=== PATIENT | male | born 1990 | race Caucasian/White ===

== ENCOUNTER 2016-06-01 18:13 | Inpatient (IN) | payer OTHER ==
--- NOTE | 2016-06-01 18:45 | HP ---
COWS - Scale Resting Pulse: 0= [place] 80 or Below Sweatin=Flushed/Facial Moisture Restless Observation: 3= Extraneous Movement Pupil Size: 2= Moderately Dilated Bone or Joint Aches: 2= Severe Diffuse Aches Runny Nose/ Eye Tearin= Runny Nose/Eyes GI Upset > 30mins: 3= Vomiting/Diarrhea Tremor Observation: 2= Slight Tremor Visible Yawning Observation: 2= >3x During Session Anxiety or Irritability: 2=Irritable/Anxious Goose Flesh Skin: 0=Smooth Skin COWS Score: 20 CIWA Score - CIWA Score Nausea/Vomitin Muscle Tremors: 3 Anxiety: 3 Agitation: 3 Paroxysmal Sweats: 3 Orientation: 0-Oriented Tacttile Disturbances: 2-Mild Itch/Numbness/Burn Auditory Disturbances: 2-Mild Harshness/Frighten Visual Disturbances: 2-Mild Sensitivity Headache: 2-Mild CIWA-Ar Total Score: 23 Admission ROS BHS - HPI Chief Complaint: i need help to stop using drugs heroin,cocaine,klonopin and alcohol Allergies/Adverse Reactions: Allergies Allergy/AdvReac Type Severity Reaction Status Date / Time No Known Allergies Allergy Verified 06/01/16 18:52 History of Present Illness: THIS 26 YEARS OLD MALE WITH HEROIN,KLONOPINE AND COCAINE DEPENDENCE,ALCOHOL DEPENDENCE,WITHDRAWAL SYMPTOM,LAST DETOX ARMS AND ACRES 07/30 ANXIETY NEUROPATHY HISTORY OF C7 ,HERNIATED DISC OF LUMBAR SPINE SEVERAL ADMISSIONS FOR DETOX LONGEST PERIOD OF SOBRIETY 18 MONTHS Exam Limitations: No Limitations - Ebola screening Have you traveled outside of the country in the last 21 days: No Have you had contact with anyone from an Ebola affected area: No Do you have a fever: No - Review of Systems Constitutional: Chills, Loss of Appetite, Malaise, Night Sweats, Changes in sleep, Weakness, Unintentional Wgt. Loss EENT: reports: Tearing, Nose Congestion Cardiac: reports: No Symptoms Reported GI: reports: Diarrhea, Nausea, Vomiting, Abdominal cramping : reports: No Symptoms Reported Musculoskeletal: reports: Back Pain, Joint Pain, Muscle Pain Neuro: reports: Headache, Tremors Endocrine: reports: No Symptoms Reported Hematology: reports: No Symptoms Reported Psychiatric: reports: Anxious, Depressed Patient History - Patient Medical History Hx Anemia: No Hx Asthma: No Hx Chronic Obstructive Pulmonary Disease (COPD): No Hx Cancer: No Hx Cardiac Disorders: No Hx Congestive Heart Failure: No Hx Hypertension: No Hx Hypercholesterolemia: No Hx Pacemaker: No HX Cerebrovascular Accident: No Hx Seizures: No Hx Dementia: No Hx Diabetes: No Hx Gastrointestinal Disorders: No Hx Liver Disease: No Hx Genitourinary Disorders: No Hx Sexually Transmitted Disorders: No Hx Renal Disease (ESRD): No Hx Thyroid Disease: No Hx Human Immunodeficiency Virus (HIV): No (11/30 NEGATIVE LAST) Hx Hepatitis C: No Hx Depression: Yes (ANXIETY) Hx Suicide Attempt: No Hx Bipolar Disorder: No Hx Schizophrenia: No Other Medical History: NO SUICDAL,NO HOMICIDAL - Patient Surgical History Past Surgical History: Yes Other Surgical History: CIRCUMCISION - PPD History Previous Implant?: Yes Documented Results: Negative w/o proof Implanted On Prior [facility] Admission?: No PPD to be Administered?: Yes - Smoking Cessation Smoking history: Current every day smoker Have you smoked in the past 12 months: Yes Aproximately how many cigarettes per day: 10 Cigars Per Day: 0 Hx Chewing Tobacco Use: No Initiated information on smoking cessation: Yes 'Breaking Loose' booklet given: 06/01/16 - Substance & Tx. History Hx Alcohol Use: Yes Hx Substance Use: Yes Substance Use Type: Alcohol, Cocaine, Heroin, Opiates Hx Substance Use Treatment: Yes (ARMS AND ACRES 07/30) - Substances Abused Heroin Route: Injection Frequency: Daily Amount used: 25 BAGS Age of first use: 21 Date of Last Use: 06/01/16 Benzodiazepine (Klonopin) Route: Oral Frequency: Daily Amount used: 3 MGS Age of first use: 24 Date of Last Use: 05/31/16 Cocaine Route: Inhalation Frequency: 1-2 times per week Amount used: 50$ Age of first use: 19 Date of Last Use: 05/31/16 Alcohol Route: Oral Frequency: 1-2 times per week Amount used: 4 OF 40 OZS Age of first use: 15 Date of Last Use: 06/01/16 Family Disease History - Family Disease History Family History: Denies Admission Physical Exam BHS - Vital Signs Vital Signs: Vital Signs Temperature 97.6 F 06/01/16 19:17 Pulse Rate 79 06/01/16 19:17 Respiratory Rate 20 06/01/16 19:17 Blood Pressure 129/79 06/01/16 19:17 O2 Sat by Pulse Oximetry (%) - Physical General Appearance: Yes: Moderate Distress, Tremorous, Irritable, Sweating, Anxious HEENTM: Yes: Nasal Congestion, Rhinorrhea Respiratory: Yes: Lungs Clear Neck: Yes: Within Normal Limits Breast: Yes: Within Normal Limits Cardiology: Yes: Within Normal Limits, Regular Rate, S1, S2 Abdominal: Yes: Within Normal Limits, Normal Bowel Sounds, Non Tender, Flat, Soft Genitourinary: Yes: Within Normal Limits Back: Yes: Within Normal Limits Musculoskeletal: Yes: Back pain, Joint Stiffness, Muscle Pain Extremities: Yes: Tremors Neurological: Yes: Within Normal Limits, legal summer intern II-XII NML intact, Fully Oriented, Alert Integumentary: Yes: Dry Lymphatic: Yes: Within Normal Limits - Diagnostic (1) Opioid dependence with withdrawal Current Visit: Yes Status: Acute (2) Cocaine dependence Current Visit: Yes Status: Acute (3) Uncomplicated sedative, hypnotic or anxiolytic withdrawal Current Visit: Yes Status: Acute (4) Alcohol dependence Current Visit: Yes Status: Acute (5) Anxiety associated with depression Current Visit: Yes Status: Acute (6) Nicotine dependence Current Visit: Yes Status: Acute Cleared for Admission [facility] - Detox or Rehab [facility] Level of Care: Medically Managed Detox Regimen/Protocol: Methadone/Valium [facility] Breath Alcohol Content Breath Alcohol Content: 0.058 Vital Signs - Vital Signs Vital Signs Refused: No Temperature: 97.6 F Temperature Source: Oral Pulse Rate: 79 Respiratory Rate: 20 Blood Pressure: 129/79 BP Location: Left Arm - Height Height: 6 ft - Weight Weight: 179 lb Weight Measurement Method: Standing Scale Body Mass Index (BMI): 24.3 Urine Drug Screen - Test Device Lot Number: [id number] Expiration Date: 11/14/17 - Control Is Test Valid: No - Results Drug Screen Negative: No Urine Drug Screen Results: VIKI-Cocaine, OPI-Opiates, OXY-Oxycodone
[2016-06-01 18:50] VITALS: BMI 24.3
[2016-06-01] MEDS ORDERED: LOPERAMIDE HCL 2 MG CAPSULE PO PRN (19:21)
[2016-06-01] MEDS ORDERED: MENTHOL/PHENOL 1 EACH UD MM PRN (19:21)
[2016-06-01] MEDS ORDERED: ACETAMINOPHEN 325 MG TABLET (FP) PO PRN (19:21)
[2016-06-01] MEDS ORDERED: IBUPROFEN 400 MG TABLET (FP) PO PRN (19:21)
[2016-06-01] MEDS ORDERED: MAGNESIUM CITRATE 300 ML BOTTLE PO PRN (19:21)
[2016-06-01] MEDS ORDERED: MAG HYDROX/AL HYDROX/SIMETH 30 ML UNIT-DOSE CUP PO PRN (19:21)
[2016-06-01] MEDS ORDERED: hydrOXYzine PAMOATE 50 MG CAPSULE (FP) PO PRN (19:21)
[2016-06-01] MEDS ORDERED: guaiFENesin/D-METHORPHAN HB 10 ML UNIT-DOSE CUPS PO PRN (19:21)
[2016-06-01] MEDS ORDERED: METHADONE HCL 10 MG TABLET (FOR DETOX USE ONLY) PO ONE ×2 (19:21→23:00)
[2016-06-01] MEDS ORDERED: diazePAM 5 MG TABLET PO ONE (19:21)
[2016-06-01] MEDS ORDERED: P-EPHED 60MG/TRIPROLIDI 2.5MG TABLET PO PRN (19:21)
[2016-06-01] MEDS ORDERED: MAGNESIUM HYDROX 2400MG/30ML ORAL SUSPENSION 30 ML CUP PO PRN (19:21)
[2016-06-01] MEDS: NICOTINE 21 MG/24 HOURS TOPICAL PATCH TD SCH (20:58)
[2016-06-01] MEDS: NICOTINE POLACRILEX 2 MG GUM BC PRN ×2 (21:02→23:34)
[2016-06-01] MEDS: diphenhydrAMINE HCL 50 MG CAPSULE PO PRN (22:49)
[2016-06-01] MEDS: cloNIDine HCL 0.1 MG TABLET PO SCH (22:49)
[2016-06-01] MEDS: THIAMINE HCL 100 MG TABLET (FP) PO SCH (22:50)
[2016-06-01] MEDS: diazePAM 5 MG TABLET PO SCH (22:50)
[2016-06-02] MEDS ORDERED: diphenhydrAMINE HCL 25 MG CAPSULE (FP) PO ONE (01:06)
[2016-06-02] MEDS: CYCLOBENZAPRINE HCL 10 MG TABLET (FP) PO PRN (01:07)
[2016-06-02] MEDS: diazePAM 5 MG TABLET PO PRN ×3 (01:07→17:32)
[2016-06-02] MEDS: diphenhydrAMINE HCL 50 MG CAPSULE PO PRN ×2 (01:07→22:17)
[2016-06-02] MEDS: NICOTINE POLACRILEX 2 MG GUM BC PRN ×4 (01:39→22:40)
[2016-06-02] MEDS: diazePAM 5 MG TABLET PO SCH ×3 (05:44→22:15)
--- NOTE | 2016-06-02 09:14 | EKG ---
Test Reason : Blood Pressure : / mmHG Vent. Rate : 068 BPM Atrial Rate : 068 BPM P-R Int : 156 ms QRS Dur : 082 ms QT Int : 366 ms P-R-T Axes : 071 056 042 degrees QTc Int : 389 ms NORMAL SINUS RHYTHM NORMAL ECG NO PREVIOUS ECGS AVAILABLE Confirmed by MARY ELLEN RAO MD ([id number]) on 06/02/2016 9:13:49 AM Referred By: Confirmed By:MARY ELLEN RAO MD
[2016-06-02] MEDS ORDERED: METHADONE HCL 10 MG TABLET (FOR DETOX USE ONLY) PO SCH (10:00)
--- NOTE | 2016-06-02 10:35 | PN ---
[facility] CIWA - CIWA Score Nausea/Vomitin-No Nausea/No Vomiting Muscle Tremors: 3 Anxiety: 4-Mod. Anxious/Guarded Agitation: 4-Moderately Restless Paroxysmal Sweats: 3 Orientation: 0-Oriented Tacttile Disturbances: 0-None Auditory Disturbances: 0-None Visual Disturbances: 0-None Headache: 0-None Present CIWA-Ar Total Score: 14 S COWS - Scale Resting Pulse: 0= [place] 80 or Below Sweatin=Flushed/Facial Moisture Restless Observation: 1= Difficult to Sit Still Pupil Size: 0= Normal to Room Light Bone or Joint Aches: 1= Mild Discomfort Runny Nose/ Eye Tearin= Nasal Congestion GI Upset > 30mins: 1= Stomach Cramp Tremor Observation of Outstretched Hands: 2= Slight Tremor Visible Yawning Observation: 1= 1-2x During Session Anxiety or Irritability: 2=Irritable/Anxious Goose Flesh Skin: 0=Smooth Skin COWS Score: 11 [facility] Progress Note (SOAP) Subjective: ANXIETY,TREMORS,SWEATING,INTERRUPTED SLEEP,RESTLESS. Objective: 06/02/16 10:34 Vital Signs - 8 hr 06/02/16 06/02/16 06/02/16 03:30 06:39 10:23 Temperature 97.1 F L 97 F L Pulse Rate 60 69 Respiratory 18 16 18 Rate Blood Pressure 100/57 128/66 Assessment: 06/02/16 10:35 WITHDRAWAL SX. Plan: CONTINUE DETOX
[2016-06-02] MEDS: PRENATAL VITAMINS W/ FOLIC ACID TABLET (FP) PO SCH (10:40)
[2016-06-02] MEDS: NICOTINE 21 MG/24 HOURS TOPICAL PATCH TD SCH (10:40)
[2016-06-02] MEDS: cloNIDine HCL 0.1 MG TABLET PO SCH ×2 (10:41→22:15)
--- NOTE | 2016-06-02 11:07 | CONSULT ---
[facility] Psychiatric Consult - Data Date of interview: 06/02/16 Admission source: 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 Substance Abuse History: Reports drinking since 15 yo(40 oz of beer daily), cocaine since 19 yo($50 daily),Heroin since 21 yo(25 bags IV dailiy) and Klonopin since 24 yo-3 mg po daily. Medical History: Herniated disk at C7 and at lumbar level,Neuropathy. Psychiatric History: Started to see a psychiatrist since [age] yo due to anxiety.He was on psychotherapy,reports being placed on medications since first admission to [facility] at 19 yo.Patient was dx with CATARINA,Drug induced Mood disorder.No more psych admissions.Current psychiatric follow up recieves from at [facility].meds:Neurontin 800 mg po tid,Valium PRN,Seroquel PRN. Physical/Sexual Abuse/Trauma History: denies Mental Status Exam - Mental Status Exam Alert and Oriented to: Time, Place, Person Cognitive Function: Grossly Intact Patient Appearance: Well Groomed Mood: Anxious, Expansive Affect: Labile Patient Behavior: Appropriate, Cooperative Speech Pattern: Clear Voice Loudness: Normal Thought Process: Goal Oriented Thought Disorder: Not Present Hallucinations: Denies Suicidal Ideation: Denies Homicidal Ideation: Denies Insight/Judgement: Fair Sleep: Difficulty falling asleep Appetite: Good Muscle strength/Tone: Normal Gait/Station: Normal Psychiatric Findings - Problem List ([place] 1, 2,3) (1) Alcohol dependence Current Visit: Yes Status: Chronic (2) Cocaine dependence Current Visit: Yes Status: Chronic (3) Nicotine dependence Current Visit: Yes Status: Chronic (4) Opioid dependence with withdrawal Current Visit: Yes Status: Chronic (5) Uncomplicated sedative, hypnotic or anxiolytic withdrawal Current Visit: Yes Status: Chronic (6) Substance induced mood disorder Current Visit: Yes Status: Chronic - Initial Treatment Plan Initial Treatment Plan: Continue Neurontin 800 mg po tid,Trazodone 50 mg po hs. Will monitor porgress.
[2016-06-02 12:58] LABS: MCH 30.4 pg (25.7-33.7); MCHC 34.6 g/dl (32.0-35.9); MEAN CELL VOLUME 87.8 fl (80-96); MEAN PLT VOLUME 7.4 fl (7.5-11.1); PLATELET COUNT 300 K/MM3 (134-434); RDW 13.8 % (11.9-15.9)
[2016-06-02 13:10] LABS: ALBUMIN 4.3 g/dl (3.4-5.0); ALK PHOS 82 U/L (45-117); ANION GAP 9 (8-16); BILIRUBIN,TOTAL 0.3 mg/dL (0.2-1.0); CALCIUM 9.3 mg/dL (8.5-10.1); CO2 27 mmol/L (21-32); GLUCOSE,RANDOM 92 mg/dL (74-106); SGOT/AST 15 U/L (15-37); SGPT/ALT 18 U/L (12-78); TOT PROT 7.8 g/dl (6.4-8.2)
[2016-06-02] MEDS: GABAPENTIN 400 MG CAPSULE (FP) PO SCH ×2 (13:59→22:15)
[2016-06-02 16:46] LABS: URINE APPEARANCE CLEAR; URINE BILIRUBIN NEGATIVE (NEGATIVE); URINE BLOOD NEGATIVE (NEGATIVE); URINE COLOR LTYELLOW; URINE GLUCOSE (UA) NEGATIVE (NEGATIVE); URINE KETONE NEGATIVE (NEGATIVE); URINE LEUK ESTERASE NEGATIVE (NEGATIVE); URINE NITRITE NEGATIVE (NEGATIVE); URINE PROTEIN NEGATIVE (NEGATIVE); URINE UROBILINOGEN NEGATIVE E.U./dl (0.2-1.0)
[2016-06-02] MEDS: THIAMINE HCL 100 MG TABLET (FP) PO SCH (22:15)
[2016-06-02] MEDS: traZODone HCL 50 MG TABLET (FP) PO SCH (22:16)
[2016-06-03] MEDS: diazePAM 5 MG TABLET PO PRN ×4 (05:54→23:27)
[2016-06-03] MEDS: GABAPENTIN 400 MG CAPSULE (FP) PO SCH ×3 (05:54→22:10)
[2016-06-03] MEDS: CYCLOBENZAPRINE HCL 10 MG TABLET (FP) PO PRN ×2 (05:55→23:26)
[2016-06-03] MEDS ORDERED: METHADONE HCL 5 MG TABLET (FOR DETOX USE ONLY) PO SCH (10:00)
[2016-06-03] MEDS: PRENATAL VITAMINS W/ FOLIC ACID TABLET (FP) PO SCH (10:32)
[2016-06-03] MEDS: cloNIDine HCL 0.1 MG TABLET PO SCH ×2 (10:32→22:10)
[2016-06-03] MEDS: diazePAM 5 MG TABLET PO SCH ×2 (10:32→22:10)
[2016-06-03] MEDS: NICOTINE 21 MG/24 HOURS TOPICAL PATCH TD SCH (10:33)
--- NOTE | 2016-06-03 11:50 | PN ---
[facility] CIWA - CIWA Score Nausea/Vomitin-No Nausea/No Vomiting Muscle Tremors: 3 Anxiety: 4-Mod. Anxious/Guarded Agitation: 3 Paroxysmal Sweats: 3 Orientation: 0-Oriented Tacttile Disturbances: 0-None Auditory Disturbances: 0-None Visual Disturbances: 0-None Headache: 0-None Present CIWA-Ar Total Score: 13 BHS COWS - Scale Resting Pulse: 0= [place] 80 or Below Sweatin=Flushed/Facial Moisture Restless Observation: 1= Difficult to Sit Still Pupil Size: 0= Normal to Room Light Bone or Joint Aches: 1= Mild Discomfort Runny Nose/ Eye Tearin= Runny Nose/Eyes GI Upset > 30mins: 1= Stomach Cramp Tremor Observation of Outstretched Hands: 2= Slight Tremor Visible Yawning Observation: 1= 1-2x During Session Anxiety or Irritability: 2=Irritable/Anxious Goose Flesh Skin: 0=Smooth Skin COWS Score: 12 S Progress Note (SOAP) Subjective: SWEATING,INTERRUPTED SLEEP,RESTLESS,TREMORS,ANXIETY. Objective: 06/03/16 11:49 Vital Signs - 8 hr 06/03/16 06/03/16 06:19 09:21 Temperature 97.7 F 96.0 F L Pulse Rate 82 76 Respiratory 18 18 Rate Blood Pressure 107/60 107/67 Laboratory Tests 06/02/16 06/02/16 06/02/16 09:40 09:40 09:40 WBC 10.0 RBC 4.83 Hgb 14.7 Hct 42.4 MCV 87.8 MCHC 34.6 RDW 13.8 Plt Count 300 MPV 7.4 L Sodium 139 Potassium 4.3 Chloride 103 Carbon Dioxide 27 Anion Gap 9 BUN 11 Creatinine 1.0 Creat Clearance w eGFR > 60 Random Glucose 92 Calcium 9.3 Total Bilirubin 0.3 AST 15 ALT 18 Alkaline Phosphatase 82 Total Protein 7.8 Albumin 4.3 Urine Color Urine Appearance Urine pH Ur Specific [place] Urine Protein Urine Glucose (UA) Urine Ketones Urine Blood Urine Nitrite Urine Bilirubin Urine Urobilinogen Ur Leukocyte Esterase RPR Titer Nonreactive 06/02/16 16:00 WBC RBC Hgb Hct MCV MCHC RDW Plt Count MPV Sodium Potassium Chloride Carbon Dioxide Anion Gap BUN Creatinine Creat Clearance w eGFR Random Glucose Calcium Total Bilirubin AST ALT Alkaline Phosphatase Total Protein Albumin Urine Color Ltyellow Urine Appearance Clear Urine pH 5.0 Ur Specific [place] 1.018 Urine Protein Negative Urine Glucose (UA) Negative Urine Ketones Negative Urine Blood Negative Urine Nitrite Negative Urine Bilirubin Negative Urine Urobilinogen Negative Ur Leukocyte Esterase Negative RPR Titer LABS NOTED Assessment: 06/03/16 11:50 WITHDRAWAL SX. Plan: CONTINUE DETOX
[2016-06-03 12:44] LABS: HIV 1 & 2 AB NEGATIVE; HIV 1 AGp24 NEGATIVE
[2016-06-03] MEDS: NICOTINE POLACRILEX 2 MG GUM BC PRN (20:32)
[2016-06-03] MEDS: diphenhydrAMINE HCL 50 MG CAPSULE PO PRN (22:10)
[2016-06-03] MEDS: traZODone HCL 50 MG TABLET (FP) PO SCH (22:10)
[2016-06-03] MEDS: THIAMINE HCL 100 MG TABLET (FP) PO SCH (22:10)
[2016-06-04] MEDS: diazePAM 5 MG TABLET PO PRN ×3 (05:44→17:23)
[2016-06-04] MEDS: GABAPENTIN 400 MG CAPSULE (FP) PO SCH ×3 (05:45→22:00)
[2016-06-04] MEDS ORDERED: METHADONE HCL 10 MG TABLET (FOR DETOX USE ONLY) PO SCH (10:00)
[2016-06-04] MEDS: cloNIDine HCL 0.1 MG TABLET PO SCH ×2 (10:39→22:00)
[2016-06-04] MEDS: NICOTINE 21 MG/24 HOURS TOPICAL PATCH TD SCH (10:39)
[2016-06-04] MEDS: PRENATAL VITAMINS W/ FOLIC ACID TABLET (FP) PO SCH (10:39)
[2016-06-04] MEDS: diazePAM 5 MG TABLET PO SCH ×2 (10:39→22:00)
[2016-06-04] MEDS: NICOTINE POLACRILEX 2 MG GUM BC PRN ×2 (14:48→17:23)
--- NOTE | 2016-06-04 15:46 | PN ---
[facility] Progress Note (SOAP) Subjective: SWEATING,INTERRUPTED SLEEP,RESTLESS. Objective: 06/04/16 15:45 Vital Signs - 8 hr 06/04/16 06/04/16 09:55 14:31 Temperature 96.6 F L 97.1 F L Pulse Rate 75 81 Respiratory 18 19 Rate Blood Pressure 121/71 108/63 Laboratory Last Values WBC 10.0 K/mm3 (4.0-10.0) 06/02/16 09:40 RBC 4.83 M/mm3 (4.00-5.60) 06/02/16 09:40 Hgb 14.7 GM/dL (11.7-16.9) 06/02/16 09:40 Hct 42.4 % (35.4-49) 06/02/16 09:40 MCV 87.8 fl (80-96) 06/02/16 09:40 MCHC 34.6 g/dl (32.0-35.9) 06/02/16 09:40 RDW 13.8 % (11.9-15.9) 06/02/16 09:40 Plt Count 300 K/MM3 (134-434) 06/02/16 09:40 MPV 7.4 fl (7.5-11.1) L 06/02/16 09:40 Sodium 139 mmol/L (136-145) 06/02/16 09:40 Potassium 4.3 mmol/L (3.5-5.1) 06/02/16 09:40 Chloride 103 mmol/L (98-107) 06/02/16 09:40 Carbon Dioxide 27 mmol/L (21-32) 06/02/16 09:40 Anion Gap 9 (8-16) 06/02/16 09:40 BUN 11 mg/dL (7-18) 06/02/16 09:40 Creatinine 1.0 mg/dL (0.7-1.3) 06/02/16 09:40 Creat Clearance w eGFR > 60 (>60) 06/02/16 09:40 Random Glucose 92 mg/dL (74-106) 06/02/16 09:40 Calcium 9.3 mg/dL (8.5-10.1) 06/02/16 09:40 Total Bilirubin 0.3 mg/dL (0.2-1.0) 06/02/16 09:40 AST 15 U/L (15-37) 06/02/16 09:40 ALT 18 U/L (12-78) 06/02/16 09:40 Alkaline Phosphatase 82 U/L (45-117) 06/02/16 09:40 Total Protein 7.8 g/dl (6.4-8.2) 06/02/16 09:40 Albumin 4.3 g/dl (3.4-5.0) 06/02/16 09:40 Urine Color Ltyellow 06/02/16 16:00 Urine Appearance Clear 06/02/16 16:00 Urine pH 5.0 (5.0-8.0) 06/02/16 16:00 Ur Specific [place] 1.018 (1.001-1.035) 06/02/16 16:00 Urine Protein Negative (NEGATIVE) 06/02/16 16:00 Urine Glucose (UA) Negative (NEGATIVE) 06/02/16 16:00 Urine Ketones Negative (NEGATIVE) 06/02/16 16:00 Urine Blood Negative (NEGATIVE) 06/02/16 16:00 Urine Nitrite Negative (NEGATIVE) 06/02/16 16:00 Urine Bilirubin Negative (NEGATIVE) 06/02/16 16:00 Urine Urobilinogen Negative E.U./dl (0.2-1.0) 06/02/16 16:00 Ur Leukocyte Esterase Negative (NEGATIVE) 06/02/16 16:00 RPR Titer Nonreactive (NONREACTIVE) 06/02/16 09:40 HIV 1&2 Antibody Screen Negative 06/03/16 08:00 HIV P24 Antigen Negative 06/03/16 08:00 LABS NOTED Assessment: 06/04/16 15:46 WITHDRAWAL SX. Plan: CONTINUE DETOX
[2016-06-04] MEDS: THIAMINE HCL 100 MG TABLET (FP) PO SCH (21:59)
[2016-06-04] MEDS: traZODone HCL 50 MG TABLET (FP) PO SCH (22:00)
[2016-06-04] MEDS: diphenhydrAMINE HCL 50 MG CAPSULE PO PRN (22:01)
[2016-06-05] MEDS: GABAPENTIN 400 MG CAPSULE (FP) PO SCH (05:45)
[2016-06-05] MEDS ORDERED: METHADONE HCL 5 MG TABLET (FOR DETOX USE ONLY) PO SCH (06:00)
[2016-06-05 06:18] VITALS: BP 117/68; PULSE 97; TEMP 96.9
[2016-06-05] MEDS: NICOTINE POLACRILEX 2 MG GUM BC PRN (07:19)
[2016-06-05] MEDS: cloNIDine HCL 0.1 MG TABLET PO SCH (09:19)
[2016-06-05] MEDS: PRENATAL VITAMINS W/ FOLIC ACID TABLET (FP) PO SCH (09:19)
[2016-06-05] MEDS: NICOTINE 21 MG/24 HOURS TOPICAL PATCH TD SCH (09:21)
[2016-06-05] MEDS ORDERED: diazePAM 5 MG TABLET PO SCH (10:00)
[2016-06-05] MEDS ORDERED: METHADONE HCL 10 MG TABLET (FOR DETOX USE ONLY) PO SCH (10:00)
[2016-06-06] MEDS ORDERED: METHADONE HCL 5 MG TABLET (FOR DETOX USE ONLY) PO SCH (06:00)
--- NOTE | 2016-06-07 12:38 | DS ---
[facility] Detox Discharge Summary Admission Date: 06/01/16 Discharge Date: 06/05/16 - History Present History: Alcohol Dependence, Cocaine Dependence, Opioid Dependence, Sedative Dependence Pertinent Past History: MOOD DISORDER - Physical Exam Results Vital Signs: Vital Signs Temperature 96.9 F L 06/05/16 06:18 Pulse Rate 97 H 06/05/16 06:18 Respiratory Rate 18 06/05/16 06:18 Blood Pressure 117/68 06/05/16 06:18 O2 Sat by Pulse Oximetry (%) Pertinent Admission Physical Exam Findings: WITHDRAWAL SX. Laboratory Last Values WBC 10.0 K/mm3 (4.0-10.0) 06/02/16 09:40 RBC 4.83 M/mm3 (4.00-5.60) 06/02/16 09:40 Hgb 14.7 GM/dL (11.7-16.9) 06/02/16 09:40 Hct 42.4 % (35.4-49) 06/02/16 09:40 MCV 87.8 fl (80-96) 06/02/16 09:40 MCHC 34.6 g/dl (32.0-35.9) 06/02/16 09:40 RDW 13.8 % (11.9-15.9) 06/02/16 09:40 Plt Count 300 K/MM3 (134-434) 06/02/16 09:40 MPV 7.4 fl (7.5-11.1) L 06/02/16 09:40 Sodium 139 mmol/L (136-145) 06/02/16 09:40 Potassium 4.3 mmol/L (3.5-5.1) 06/02/16 09:40 Chloride 103 mmol/L (98-107) 06/02/16 09:40 Carbon Dioxide 27 mmol/L (21-32) 06/02/16 09:40 Anion Gap 9 (8-16) 06/02/16 09:40 BUN 11 mg/dL (7-18) 06/02/16 09:40 Creatinine 1.0 mg/dL (0.7-1.3) 06/02/16 09:40 Creat Clearance w eGFR > 60 (>60) 06/02/16 09:40 Random Glucose 92 mg/dL (74-106) 06/02/16 09:40 Calcium 9.3 mg/dL (8.5-10.1) 06/02/16 09:40 Total Bilirubin 0.3 mg/dL (0.2-1.0) 06/02/16 09:40 AST 15 U/L (15-37) 06/02/16 09:40 ALT 18 U/L (12-78) 06/02/16 09:40 Alkaline Phosphatase 82 U/L (45-117) 06/02/16 09:40 Total Protein 7.8 g/dl (6.4-8.2) 06/02/16 09:40 Albumin 4.3 g/dl (3.4-5.0) 06/02/16 09:40 Urine Color Ltyellow 06/02/16 16:00 Urine Appearance Clear 06/02/16 16:00 Urine pH 5.0 (5.0-8.0) 06/02/16 16:00 Ur Specific [place] 1.018 (1.001-1.035) 06/02/16 16:00 Urine Protein Negative (NEGATIVE) 06/02/16 16:00 Urine Glucose (UA) Negative (NEGATIVE) 06/02/16 16:00 Urine Ketones Negative (NEGATIVE) 06/02/16 16:00 Urine Blood Negative (NEGATIVE) 06/02/16 16:00 Urine Nitrite Negative (NEGATIVE) 06/02/16 16:00 Urine Bilirubin Negative (NEGATIVE) 06/02/16 16:00 Urine Urobilinogen Negative E.U./dl (0.2-1.0) 06/02/16 16:00 Ur Leukocyte Esterase Negative (NEGATIVE) 06/02/16 16:00 RPR Titer Nonreactive (NONREACTIVE) 06/02/16 09:40 HIV 1&2 Antibody Screen Negative 06/03/16 08:00 HIV P24 Antigen Negative 06/03/16 08:00 LABS NOTED - Treatment Hospital Course: Detox Protocol Followed, Detoxed Safely, Responded well, Discharged Condition Good, Rehab Referral Accepted - Medication Discharge Medications: Ambulatory Orders Gabapentin [Neurontin -] 800 mg PO TID #120 capsule 06/02/16 Trazodone HCl [Desyrel -] 50 mg PO HS #30 tablet 06/02/16 - Diagnosis (1) Alcohol dependence Status: Chronic Qualifiers: Substance use status: uncomplicated Qualified Code(s): F10.20 - Alcohol dependence, uncomplicated (2) Cocaine dependence Status: Chronic Qualifiers: Substance use status: uncomplicated Qualified Code(s): F14.20 - Cocaine dependence, uncomplicated (3) Nicotine dependence Status: Chronic Qualifiers: Nicotine product type: cigarettes Substance use status: uncomplicated Qualified Code(s): F17.210 - Nicotine dependence, cigarettes, uncomplicated (4) Opioid dependence with withdrawal Status: Acute (5) Substance induced mood disorder Status: Chronic (6) Uncomplicated sedative, hypnotic or anxiolytic withdrawal Status: Acute - AMA Did Patient Leave Against Medical Advice: No
== END 2016-06-05 09:30 | disposition home or self-care (01) | DRG 773 ==
LOC: YASAS 18:13 → Y3N 19:19
PROVIDERS: ADMIT Internal Medicine; ATTEND Internal Medicine
PROC: HZ2ZZZZ Detoxification Services for Substance Abuse Treatment (ICD-10-PCS; principal; 2016-06-01)
DX: F11.23 Opioid dependence with withdrawal (principal); F13.230 Sedative, hypnotic or anxiolytic dependence with withdrawal, uncomplicated; F10.230 Alcohol dependence with withdrawal, uncomplicated; F14.20 Cocaine dependence, uncomplicated; F17.210 Nicotine dependence, cigarettes, uncomplicated; F19.24 Other psychoactive substance dependence with psychoactive substance-induced mood disorder; G62.9 Polyneuropathy, unspecified; M51.26 Other intervertebral disc displacement, lumbar region
CPT/HCPCS: 36415; 80053; 81003; 85027; 86593; 87389; 93005; 93010

== ENCOUNTER 2016-06-29 15:41 | Inpatient (IN) | payer OTHER ==
--- NOTE | 2016-06-29 16:01 | HP ---
COWS - Scale Resting Pulse: 1= MD 81-100 Sweatin=Flushed/Facial Moisture Restless Observation: 3= Extraneous Movement Pupil Size: 2= Moderately Dilated Bone or Joint Aches: 2= Severe Diffuse Aches Runny Nose/ Eye Tearin= Runny Nose/Eyes GI Upset > 30mins: 2= Nausea/Diarrhea Tremor Observation: 2= Slight Tremor Visible Yawning Observation: 2= >3x During Session Anxiety or Irritability: 2=Irritable/Anxious Goose Flesh Skin: 3=Piloerection COWS Score: 23 CIWA Score - CIWA Score Nausea/Vomitin Muscle Tremors: 4-Moderate,w/Arms Extend Anxiety: 4-Mod. Anxious/Guarded Agitation: 4-Moderately Restless Paroxysmal Sweats: 3 Orientation: 2-Disoriented Date<2 days Tacttile Disturbances: 0-None Auditory Disturbances: 0-None Visual Disturbances: 0-None Headache: 0-None Present CIWA-Ar Total Score: 20 Admission ROS BHS - HPI Chief Complaint: withdrawal sx. Allergies/Adverse Reactions: Allergies Allergy/AdvReac Type Severity Reaction Status Date / Time No Known Allergies Allergy Verified 06/01/16 18:52 History of Present Illness: 26 y/o man with a long hx. of heroin & alcohol dependence is admitted for detox. Pt. has been in previous detox,denies significant sobriety. His last detox was here & completed on 06/05/16, he did not F/U with after care. Exam Limitations: No Limitations - Ebola screening Have you traveled outside of the country in the last 21 days: No Have you had contact with anyone from an Ebola affected area: No Do you have a fever: No - Review of Systems Constitutional: Diaphoresis EENT: reports: Nose Congestion Respiratory: reports: No Symptoms reported Cardiac: reports: No Symptoms Reported GI: reports: Diarrhea, Nausea, Vomiting (earlier today) : reports: No Symptoms Reported Musculoskeletal: reports: No Symptoms Reported Integumentary: reports: Sweating Neuro: reports: Tremors Endocrine: reports: No Symptoms Reported Hematology: reports: No Symptoms Reported Psychiatric: reports: No Sypmtoms Reported Other Systems: Reviewed and Negative Patient History - Patient Medical History Hx Anemia: No Hx Asthma: No Hx Chronic Obstructive Pulmonary Disease (COPD): No Hx Cancer: No Hx Cardiac Disorders: No Hx Congestive Heart Failure: No Hx Hypertension: No Hx Hypercholesterolemia: No Hx Pacemaker: No HX Cerebrovascular Accident: No Hx Seizures: No Hx Dementia: No Hx Diabetes: No Hx Gastrointestinal Disorders: No Hx Liver Disease: No Hx Genitourinary Disorders: No Hx Sexually Transmitted Disorders: No Hx Renal Disease (ESRD): No Hx Thyroid Disease: No Hx Human Immunodeficiency Virus (HIV): No Hx Hepatitis C: No Hx Depression: Yes Hx Suicide Attempt: No Hx Bipolar Disorder: No Hx Schizophrenia: No - Patient Surgical History Past Surgical History: Yes Hx Neurologic Surgery: No Hx Cataract Extraction: No Hx Cardiac Surgery: No Hx Breast Surgery: No Hx Breast Biopsy: No Hx Abdominal Surgery: No Hx Appendectomy: No Hx Cholecystectomy: No Hx Genitourinary Surgery: No Hx Section: No Hx Orthopedic Surgery: No Other Surgical History: CIRCUMCISION Anesthesia Reaction: No - PPD History Date: 06/03/16 Results: 0 mm PPD to be Administered?: No - Smoking Cessation Smoking history: Current every day smoker Have you smoked in the past 12 months: Yes Aproximately how many cigarettes per day: 15 Cigars Per Day: 0 Hx Chewing Tobacco Use: No Initiated information on smoking cessation: Yes 'Breaking Loose' booklet given: 06/29/16 - Substance & Tx. History Hx Alcohol Use: Yes Hx Substance Use: Yes Substance Use Type: Alcohol, Cocaine, Heroin, Tranquilizers Hx Substance Use Treatment: Yes (detox) - Substances Abused Heroin Route: Injection Frequency: Daily Amount used: 20-25 bags Age of first use: 18 Date of Last Use: 06/29/16 Alcohol Route: Oral Frequency: 3-6 times per week Amount used: vodka 5-6 drinks Age of first use: 13 Date of Last Use: 06/29/16 Benzodiazepine (Klonopin) or xanax Route: Oral Frequency: Daily Amount used: 3-4mg Age of first use: 17 Date of Last Use: 06/28/16 Cocaine Route: Injection Frequency: 3-6 times per week Amount used: $40.00 Age of first use: 16 Date of Last Use: 06/27/16 Family Disease History - Family Disease History Family Disease History: CA: Grandparent (pancreatic) Admission Physical Exam BHS - Vital Signs Vital Signs: Last Vital Signs Temp Pulse Resp BP Pulse Ox 98.0 F 99 H 18 154/70 06/29/16 16:30 06/29/16 16:30 06/29/16 16:30 06/29/16 16:30 - Physical General Appearance: Yes: Tremorous, Irritable, Sweating, Anxious HEENTM: Yes: Nasal Congestion, Rhinorrhea Respiratory: Yes: Chest Non-Tender, Lungs Clear, Normal Breath Sounds Neck: Yes: Supple Breast: Yes: Breast Exam Deferred Cardiology: Yes: Regular Rhythm, Regular Rate, S1, S2 Abdominal: Yes: Normal Bowel Sounds, Non Tender, Flat, Soft Genitourinary: Yes: Within Normal Limits Back: Yes: Within Normal Limits Musculoskeletal: Yes: Within Normal Limits Extremities: Yes: Tremors Neurological: Yes: Fully Oriented, Alert Integumentary: Yes: Diaphoresis Lymphatic: Yes: Within Normal Limits - Diagnostic (1) Opioid dependence with withdrawal Current Visit: Yes Status: Acute (2) Uncomplicated sedative, hypnotic or anxiolytic withdrawal Current Visit: Yes Status: Acute (3) Cocaine dependence Current Visit: Yes Status: Chronic Qualifiers: Substance use status: uncomplicated Qualified Code(s): F14.20 - Cocaine dependence, uncomplicated (4) Nicotine dependence Current Visit: Yes Status: Chronic Qualifiers: Nicotine product type: cigarettes Substance use status: uncomplicated Qualified Code(s): F17.210 - Nicotine dependence, cigarettes, uncomplicated (5) Alcohol dependence with uncomplicated withdrawal Current Visit: Yes Status: Acute Cleared for Admission S - Detox or Rehab [facility] Level of Care: Medically Managed Detox Regimen/Protocol: Methadone/Valium S Breath Alcohol Content Breath Alcohol Content: 0.058
[2016-06-29] MEDS ORDERED: METHADONE HCL 10 MG TABLET (FOR DETOX USE ONLY) PO ONE ×2 (16:37→23:00)
[2016-06-29] MEDS ORDERED: MAG HYDROX/AL HYDROX/SIMETH 30 ML UNIT-DOSE CUP PO PRN (16:37)
[2016-06-29] MEDS ORDERED: ACETAMINOPHEN 325 MG TABLET (FP) PO PRN (16:37)
[2016-06-29] MEDS ORDERED: MAGNESIUM HYDROX 2400MG/30ML ORAL SUSPENSION 30 ML CUP PO PRN (16:37)
[2016-06-29] MEDS ORDERED: diazePAM 5 MG TABLET PO ONE (16:37)
[2016-06-29] MEDS ORDERED: P-EPHED 60MG/TRIPROLIDI 2.5MG TABLET PO PRN (16:37)
[2016-06-29] MEDS ORDERED: MENTHOL/PHENOL 1 EACH UD MM PRN (16:37)
[2016-06-29] MEDS ORDERED: guaiFENesin/D-METHORPHAN HB 10 ML UNIT-DOSE CUPS PO PRN (16:37)
[2016-06-29] MEDS ORDERED: IBUPROFEN 400 MG TABLET (FP) PO PRN (16:37)
[2016-06-29] MEDS ORDERED: LOPERAMIDE HCL 2 MG CAPSULE PO PRN (16:37)
[2016-06-29] MEDS ORDERED: MAGNESIUM CITRATE 300 ML BOTTLE PO PRN (16:37)
[2016-06-29 16:54] VITALS: BMI 21.0
[2016-06-29] MEDS: NICOTINE 21 MG/24 HOURS TOPICAL PATCH TD SCH (17:42)
[2016-06-29] MEDS: THIAMINE HCL 100 MG TABLET (FP) PO SCH (22:46)
[2016-06-29] MEDS: diazePAM 5 MG TABLET PO SCH (22:46)
[2016-06-29] MEDS: diphenhydrAMINE HCL 50 MG CAPSULE PO PRN (22:47)
[2016-06-30] MEDS: diphenhydrAMINE HCL 50 MG CAPSULE PO PRN ×2 (00:28→22:21)
[2016-06-30] MEDS: diazePAM 5 MG TABLET PO PRN ×4 (00:28→17:21)
[2016-06-30] MEDS: diazePAM 5 MG TABLET PO SCH ×3 (06:10→22:20)
[2016-06-30 09:55] LABS: MCHC 34.8 g/dl (32.0-35.9); MEAN CELL VOLUME 86.3 fl (80-96); MEAN PLT VOLUME 7.7 fl (7.5-11.1); PLATELET COUNT 257 K/MM3 (134-434); RDW 13.7 % (11.9-15.9); WHITE BLOOD COUNT 8.9 K/mm3 (4.0-10.0)
[2016-06-30] MEDS ORDERED: METHADONE HCL 10 MG TABLET (FOR DETOX USE ONLY) PO SCH (10:00)
[2016-06-30 10:01] LABS: CALCIUM 9.2 mg/dL (8.5-10.1)
[2016-06-30 10:08] LABS: ALBUMIN 4.5 g/dl (3.4-5.0); ALK PHOS 73 U/L (45-117); ANION GAP 9 (8-16); BILIRUBIN,TOTAL 0.5 mg/dL (0.2-1.0); CO2 27 mmol/L (21-32); GLUCOSE,RANDOM 90 mg/dL (74-106); SGOT/AST 10 U/L (15-37); SGPT/ALT 15 U/L (12-78); TOT PROT 7.6 g/dl (6.4-8.2)
[2016-06-30] MEDS: PRENATAL VITAMINS W/ FOLIC ACID TABLET (FP) PO SCH (10:17)
[2016-06-30] MEDS: NICOTINE 21 MG/24 HOURS TOPICAL PATCH TD SCH (10:17)
--- NOTE | 2016-06-30 10:21 | PN ---
S CIWA - CIWA Score Nausea/Vomitin Muscle Tremors: 4-Moderate,w/Arms Extend Anxiety: 4-Mod. Anxious/Guarded Agitation: 4-Moderately Restless Paroxysmal Sweats: 3 Orientation: 0-Oriented Tacttile Disturbances: 0-None Auditory Disturbances: 0-None Visual Disturbances: 0-None Headache: 0-None Present CIWA-Ar Total Score: 17 BHS COWS - Scale Resting Pulse: 1= [place] 81-100 Sweatin=Flushed/Facial Moisture Restless Observation: 1= Difficult to Sit Still Pupil Size: 1= Pupils >than Normal Bone or Joint Aches: 2= Severe Diffuse Aches Runny Nose/ Eye Tearin= Runny Nose/Eyes GI Upset > 30mins: 2= Nausea/Diarrhea Tremor Observation of Outstretched Hands: 2= Slight Tremor Visible Yawning Observation: 1= 1-2x During Session Anxiety or Irritability: 2=Irritable/Anxious Goose Flesh Skin: 0=Smooth Skin COWS Score: 16 S Progress Note (SOAP) Subjective: Anxiety,tremors,sweating,interrupted sleep,restless. Objective: 06/30/16 10:20 Vital Signs - 8 hr 06/30/16 06/30/16 06/30/16 03:27 06:20 10:06 Temperature 96.6 F L 95.8 F L Pulse Rate 92 H 86 Respiratory 18 18 20 Rate Blood Pressure 132/76 131/83 Laboratory Tests 06/30/16 06/30/16 07:00 07:00 WBC 8.9 RBC 4.71 Hgb 14.1 Hct 40.6 MCV 86.3 MCHC 34.8 RDW 13.7 Plt Count 257 MPV 7.7 Sodium 139 Potassium 3.7 Chloride 103 Carbon Dioxide 27 Anion Gap 9 BUN 8 D Creatinine 1.0 Creat Clearance w eGFR > 60 Random Glucose 90 Calcium 9.2 Total Bilirubin 0.5 D AST 10 L D ALT 15 Alkaline Phosphatase 73 Total Protein 7.6 Albumin 4.5 labs noted Assessment: 06/30/16 10:20 withdrawal sx. Plan: continue detox
[2016-06-30 10:46] LABS: HIV 1 & 2 AB NEGATIVE; HIV 1 AGp24 NEGATIVE
[2016-06-30] MEDS: AMMONIUM LACTATE 12% LOTION 225 GM BOTTLE TP SCH ×2 (11:25→22:22)
--- NOTE | 2016-06-30 12:04 | EKG ---
Test Reason : Blood Pressure : / mmHG Vent. Rate : 075 BPM Atrial Rate : 075 BPM P-R Int : 154 ms QRS Dur : 074 ms QT Int : 348 ms P-R-T Axes : 074 078 065 degrees QTc Int : 388 ms NORMAL SINUS RHYTHM NORMAL ECG WHEN COMPARED WITH ECG OF 01-JUN-2016 21:11, NO SIGNIFICANT CHANGE WAS FOUND Confirmed by MARY ELLEN RAO MD ([id number]) on 06/30/2016 12:03:55 PM Referred By: Confirmed By:MARY ELLEN RAO MD
[2016-06-30] MEDS: NICOTINE POLACRILEX 2 MG GUM BC PRN ×3 (12:27→22:22)
--- NOTE | 2016-06-30 13:38 | CONSULT ---
[facility] Psychiatric Consult - Data Date of interview: 06/30/16 Admission source: [facility] Identifying data: Readmission to [facility] for this 26 y/o Caucasain male from [facility],seeking detox treatment on 3 for alcohol,cocaine, heroin and benzodiazepine (xanax) dependence.Patient is single without children, domiciled,unemployed and currenttl dependent on his relatives for financial support. Substance Abuse History: - Smoking Cessation. Smoking history: Current every day smoker. Have you smoked in the past 12 months: Yes. Aproximately how many cigarettes per day: 15. Cigars Per Day: 0. Hx Chewing Tobacco Use: No. Initiated information on smoking cessation: Yes. 'Breaking Loose' booklet given : 06/29/16. - Substance & Tx. History. Hx Alcohol Use: Yes. Hx Substance Use : Yes. Substance Use Type: Alcohol, Cocaine, Heroin, Tranquilizers. Hx Substance Use Treatment: Yes (detox). - Substances Abused. Heroin. Route: Injection. Frequency: Daily. Amount used: 20-25 bags. Age of first use: 18. Date of Last Use: 06/29/16. Alcohol. Route: Oral. Frequency: 3-6 times per week. Amount used: vodka 5-6 drinks. Age of first use: 13. Date of Last Use: 06/29/16. Benzodiazepine (Klonopin) or xanax. Route: Oral. Frequency : Daily. Amount used: 3-4mg. Age of first use: 17. Date of Last Use: . Cocaine. Route: Injection. Frequency: 3-6 times per week. Amount used : $40.00. Age of first use: 16. Date of Last Use: 06/27/16. Patient confirms this pattern of substance use in this interview. Medical History: History of herniated disk (C-7),chronic lower back pain and neuropathy. Psychiatric History: Imelda reports a history of one psychiatric hospitalization (age 19) at [facility].Diagnosed with CATARINA.Mr Macdonald indicates that he was followed by psychiatrist Dr Lio Taylor at [facility] on a regimen of neurontin 800 mg po tid + trazodone 50 mg po hs + clonazepam and seroquel on a prn basis.Patient is also on suboxone therapy.No reported history of suicide attempts. Physical/Sexual Abuse/Trauma History: Patient denies. Mental Status Exam - Mental Status Exam Alert and Oriented to: Time, Place, Person Cognitive Function: Good Patient Appearance: Well Groomed Mood: Anxious, Apprehensive, Hopeful Affect: Mood Congruent Patient Behavior: Talkative (friendly), Appropriate (friendly,well-mannered), Cooperative Speech Pattern: Clear, Appropriate Voice Loudness: Normal Thought Process: Intact, Goal Oriented Thought Disorder: Not Present Hallucinations: Denies Suicidal Ideation: Denies Homicidal Ideation: Denies Insight/Judgement: Poor Sleep: Poorly, Difficulty falling asleep Appetite: Good Muscle strength/Tone: Normal Gait/Station: Normal Psychiatric Findings - Problem List ([place] 1, 2,3) (1) Alcohol dependence with uncomplicated withdrawal Current Visit: Yes Status: Acute (2) Opioid dependence with withdrawal Current Visit: Yes Status: Acute (3) Uncomplicated sedative, hypnotic or anxiolytic withdrawal Current Visit: Yes Status: Acute (4) Cocaine dependence Current Visit: Yes Status: Acute Qualifiers: Substance use status: uncomplicated Qualified Code(s): F14.20 - Cocaine dependence, uncomplicated (5) Nicotine dependence Current Visit: Yes Status: Acute Qualifiers: Nicotine product type: cigarettes Substance use status: uncomplicated Qualified Code(s): F17.210 - Nicotine dependence, cigarettes, uncomplicated (6) Substance induced mood disorder Current Visit: Yes Status: Acute (7) Generalized anxiety disorder Current Visit: Yes Status: Chronic Comment: Self-report. (8) Insomnia Current Visit: Yes Status: Chronic - Initial Treatment Plan Initial Treatment Plan: Psychoeducation.Detoxification.Medications : gabapentin 800 mg po tid + trazodone 50 mg po hs.Side effects/benefits discussed with the patient.He is also made aware of the risk of priapism (trazodone) and he is advised to stop medication and alert MD/RN if erectile abnormalities (painful/ prolonged erection).Patient agrees with this plan of care.Observation.
[2016-06-30] MEDS: GABAPENTIN 400 MG CAPSULE (FP) PO SCH ×2 (14:20→22:20)
[2016-06-30 14:43] LABS: URINE APPEARANCE CLEAR; URINE BILIRUBIN NEGATIVE (NEGATIVE); URINE BLOOD NEGATIVE (NEGATIVE); URINE COLOR STRAW; URINE GLUCOSE (UA) NEGATIVE (NEGATIVE); URINE KETONE NEGATIVE (NEGATIVE); URINE LEUK ESTERASE NEGATIVE (NEGATIVE); URINE NITRITE NEGATIVE (NEGATIVE); URINE PROTEIN NEGATIVE (NEGATIVE); URINE UROBILINOGEN NEGATIVE E.U./dl (0.2-1.0)
[2016-06-30] MEDS: THIAMINE HCL 100 MG TABLET (FP) PO SCH (22:20)
[2016-06-30] MEDS: traZODone HCL 50 MG TABLET (FP) PO SCH (22:20)
[2016-07-01] MEDS: GABAPENTIN 400 MG CAPSULE (FP) PO SCH ×3 (05:44→22:24)
[2016-07-01] MEDS: diazePAM 5 MG TABLET PO PRN ×3 (05:44→18:12)
[2016-07-01] MEDS ORDERED: METHADONE HCL 5 MG TABLET (FOR DETOX USE ONLY) PO SCH (10:00)
[2016-07-01] MEDS: diazePAM 5 MG TABLET PO SCH ×2 (10:23→22:24)
[2016-07-01] MEDS: PRENATAL VITAMINS W/ FOLIC ACID TABLET (FP) PO SCH (10:23)
[2016-07-01] MEDS: AMMONIUM LACTATE 12% LOTION 225 GM BOTTLE TP SCH ×2 (10:23→23:06)
[2016-07-01] MEDS: NICOTINE 21 MG/24 HOURS TOPICAL PATCH TD SCH (10:24)
[2016-07-01] MEDS: NICOTINE POLACRILEX 2 MG GUM BC PRN ×4 (10:35→22:27)
--- NOTE | 2016-07-01 11:02 | PN ---
[facility] CIWA - CIWA Score Nausea/Vomitin-No Nausea/No Vomiting Muscle Tremors: 4-Moderate,w/Arms Extend Anxiety: 4-Mod. Anxious/Guarded Agitation: 4-Moderately Restless Paroxysmal Sweats: 1-Minimal Palms Moist Orientation: 0-Oriented Tacttile Disturbances: 3-Moderate Itch/Numb/Burn Auditory Disturbances: 0-None Visual Disturbances: 0-None Headache: 0-None Present CIWA-Ar Total Score: 16 S COWS - Scale Resting Pulse: 1= [place] 81-100 Sweatin= Chills/Flushing Restless Observation: 3= Extraneous Movement Pupil Size: 2= Moderately Dilated Bone or Joint Aches: 4=Acute Joint/Muscle Pain Runny Nose/ Eye Tearin= Nasal Congestion GI Upset > 30mins: 1= Stomach Cramp Tremor Observation of Outstretched Hands: 2= Slight Tremor Visible Yawning Observation: 1= 1-2x During Session Anxiety or Irritability: 2=Irritable/Anxious Goose Flesh Skin: 0=Smooth Skin COWS Score: 18 S Progress Note (SOAP) Subjective: ANXIETY,TREMORS,HOT/COLD CHILLS,MUSCLE ACHES. Objective: 07/01/16 11:01 Vital Signs Temperature 97.1 F L 07/01/16 09:45 Pulse Rate 86 07/01/16 09:45 Respiratory Rate 18 07/01/16 09:45 Blood Pressure 115/76 07/01/16 09:45 O2 Sat by Pulse Oximetry (%) Laboratory Last Values WBC 8.9 K/mm3 (4.0-10.0) 06/30/16 07:00 RBC 4.71 M/mm3 (4.00-5.60) 06/30/16 07:00 Hgb 14.1 GM/dL (11.7-16.9) 06/30/16 07:00 Hct 40.6 % (35.4-49) 06/30/16 07:00 MCV 86.3 fl (80-96) 06/30/16 07:00 MCHC 34.8 g/dl (32.0-35.9) 06/30/16 07:00 RDW 13.7 % (11.9-15.9) 06/30/16 07:00 Plt Count 257 K/MM3 (134-434) 06/30/16 07:00 MPV 7.7 fl (7.5-11.1) 06/30/16 07:00 Sodium 139 mmol/L (136-145) 06/30/16 07:00 Potassium 3.7 mmol/L (3.5-5.1) 06/30/16 07:00 Chloride 103 mmol/L (98-107) 06/30/16 07:00 Carbon Dioxide 27 mmol/L (21-32) 06/30/16 07:00 Anion Gap 9 (8-16) 06/30/16 07:00 BUN 8 mg/dL (7-18) D 06/30/16 07:00 Creatinine 1.0 mg/dL (0.7-1.3) 06/30/16 07:00 Creat Clearance w eGFR > 60 (>60) 06/30/16 07:00 Random Glucose 90 mg/dL (74-106) 06/30/16 07:00 Calcium 9.2 mg/dL (8.5-10.1) 06/30/16 07:00 Total Bilirubin 0.5 mg/dL (0.2-1.0) D 06/30/16 07:00 AST 10 U/L (15-37) L D 06/30/16 07:00 ALT 15 U/L (12-78) 06/30/16 07:00 Alkaline Phosphatase 73 U/L (45-117) 06/30/16 07:00 Total Protein 7.6 g/dl (6.4-8.2) 06/30/16 07:00 Albumin 4.5 g/dl (3.4-5.0) 06/30/16 07:00 Urine Color Straw 06/30/16 12:30 Urine Appearance Clear 06/30/16 12:30 Urine pH 8.0 (5.0-8.0) D 06/30/16 12:30 Ur Specific [place] 1.004 (1.001-1.035) 06/30/16 12:30 Urine Protein Negative (NEGATIVE) 06/30/16 12:30 Urine Glucose (UA) Negative (NEGATIVE) 06/30/16 12:30 Urine Ketones Negative (NEGATIVE) 06/30/16 12:30 Urine Blood Negative (NEGATIVE) 06/30/16 12:30 Urine Nitrite Negative (NEGATIVE) 06/30/16 12:30 Urine Bilirubin Negative (NEGATIVE) 06/30/16 12:30 Urine Urobilinogen Negative E.U./dl (0.2-1.0) 06/30/16 12:30 Ur Leukocyte Esterase Negative (NEGATIVE) 06/30/16 12:30 RPR Titer Nonreactive (NONREACTIVE) 06/30/16 07:00 HIV 1&2 Antibody Screen Negative 06/30/16 07:00 HIV P24 Antigen Negative 06/30/16 07:00 Assessment: 07/01/16 11:01 WITHDRAWAL SX Plan: CONTINUE DETOX
[2016-07-01] MEDS: CYCLOBENZAPRINE HCL 10 MG TABLET (FP) PO SCH ×2 (13:11→22:24)
[2016-07-01] MEDS: traZODone HCL 50 MG TABLET (FP) PO SCH (22:24)
[2016-07-01] MEDS: diphenhydrAMINE HCL 50 MG CAPSULE PO PRN (22:25)
[2016-07-01] MEDS: THIAMINE HCL 100 MG TABLET (FP) PO SCH (23:06)
[2016-07-02] MEDS: CYCLOBENZAPRINE HCL 10 MG TABLET (FP) PO SCH ×3 (06:08→22:25)
[2016-07-02] MEDS: diazePAM 5 MG TABLET PO PRN ×2 (06:08→13:54)
[2016-07-02] MEDS: GABAPENTIN 400 MG CAPSULE (FP) PO SCH ×3 (06:08→22:26)
[2016-07-02] MEDS ORDERED: METHADONE HCL 10 MG TABLET (FOR DETOX USE ONLY) PO SCH (10:00)
[2016-07-02] MEDS: AMMONIUM LACTATE 12% LOTION 225 GM BOTTLE TP SCH ×2 (10:11→22:25)
[2016-07-02] MEDS: NICOTINE 21 MG/24 HOURS TOPICAL PATCH TD SCH (10:12)
[2016-07-02] MEDS: diazePAM 5 MG TABLET PO SCH ×2 (10:12→22:26)
[2016-07-02] MEDS: PRENATAL VITAMINS W/ FOLIC ACID TABLET (FP) PO SCH (10:12)
[2016-07-02] MEDS: NICOTINE POLACRILEX 2 MG GUM BC PRN ×4 (10:14→22:27)
--- NOTE | 2016-07-02 11:42 | PN ---
BHS Progress Note (SOAP) Subjective: ANXIETY,RESTLESSNESS,SWEATS. Objective: 07/02/16 11:42 Vital Signs Temperature 97.7 F 07/02/16 10:01 Pulse Rate 68 07/02/16 10:01 Respiratory Rate 16 07/02/16 10:01 Blood Pressure 115/71 07/02/16 10:01 O2 Sat by Pulse Oximetry (%) Laboratory Last Values WBC 8.9 K/mm3 (4.0-10.0) 06/30/16 07:00 RBC 4.71 M/mm3 (4.00-5.60) 06/30/16 07:00 Hgb 14.1 GM/dL (11.7-16.9) 06/30/16 07:00 Hct 40.6 % (35.4-49) 06/30/16 07:00 MCV 86.3 fl (80-96) 06/30/16 07:00 MCHC 34.8 g/dl (32.0-35.9) 06/30/16 07:00 RDW 13.7 % (11.9-15.9) 06/30/16 07:00 Plt Count 257 K/MM3 (134-434) 06/30/16 07:00 MPV 7.7 fl (7.5-11.1) 06/30/16 07:00 Sodium 139 mmol/L (136-145) 06/30/16 07:00 Potassium 3.7 mmol/L (3.5-5.1) 06/30/16 07:00 Chloride 103 mmol/L (98-107) 06/30/16 07:00 Carbon Dioxide 27 mmol/L (21-32) 06/30/16 07:00 Anion Gap 9 (8-16) 06/30/16 07:00 BUN 8 mg/dL (7-18) D 06/30/16 07:00 Creatinine 1.0 mg/dL (0.7-1.3) 06/30/16 07:00 Creat Clearance w eGFR > 60 (>60) 06/30/16 07:00 Random Glucose 90 mg/dL (74-106) 06/30/16 07:00 Calcium 9.2 mg/dL (8.5-10.1) 06/30/16 07:00 Total Bilirubin 0.5 mg/dL (0.2-1.0) D 06/30/16 07:00 AST 10 U/L (15-37) L D 06/30/16 07:00 ALT 15 U/L (12-78) 06/30/16 07:00 Alkaline Phosphatase 73 U/L (45-117) 06/30/16 07:00 Total Protein 7.6 g/dl (6.4-8.2) 06/30/16 07:00 Albumin 4.5 g/dl (3.4-5.0) 06/30/16 07:00 Urine Color Straw 06/30/16 12:30 Urine Appearance Clear 06/30/16 12:30 Urine pH 8.0 (5.0-8.0) D 06/30/16 12:30 Ur Specific [place] 1.004 (1.001-1.035) 06/30/16 12:30 Urine Protein Negative (NEGATIVE) 06/30/16 12:30 Urine Glucose (UA) Negative (NEGATIVE) 06/30/16 12:30 Urine Ketones Negative (NEGATIVE) 06/30/16 12:30 Urine Blood Negative (NEGATIVE) 06/30/16 12:30 Urine Nitrite Negative (NEGATIVE) 06/30/16 12:30 Urine Bilirubin Negative (NEGATIVE) 06/30/16 12:30 Urine Urobilinogen Negative E.U./dl (0.2-1.0) 06/30/16 12:30 Ur Leukocyte Esterase Negative (NEGATIVE) 06/30/16 12:30 RPR Titer Nonreactive (NONREACTIVE) 06/30/16 07:00 HIV 1&2 Antibody Screen Negative 06/30/16 07:00 HIV P24 Antigen Negative 06/30/16 07:00 Assessment: 07/02/16 11:42 WITHDRAWAL SX Plan: CONTINUE DETOX
[2016-07-02] MEDS: hydrOXYzine PAMOATE 50 MG CAPSULE (FP) PO PRN (18:05)
[2016-07-02] MEDS: traZODone HCL 50 MG TABLET (FP) PO SCH (22:25)
[2016-07-02] MEDS: THIAMINE HCL 100 MG TABLET (FP) PO SCH (22:26)
[2016-07-03] MEDS ORDERED: METHADONE HCL 5 MG TABLET (FOR DETOX USE ONLY) PO SCH (06:00)
[2016-07-03] MEDS: GABAPENTIN 400 MG CAPSULE (FP) PO SCH (06:02)
[2016-07-03] MEDS: CYCLOBENZAPRINE HCL 10 MG TABLET (FP) PO SCH (06:02)
[2016-07-03] MEDS: hydrOXYzine PAMOATE 50 MG CAPSULE (FP) PO PRN (06:05)
[2016-07-03] MEDS: NICOTINE POLACRILEX 2 MG GUM BC PRN (06:05)
[2016-07-03 06:31] VITALS: BP 126/70; PULSE 84; TEMP 95.7
[2016-07-03] MEDS: PRENATAL VITAMINS W/ FOLIC ACID TABLET (FP) PO SCH (09:08)
[2016-07-03] MEDS ORDERED: diazePAM 5 MG TABLET PO SCH (10:00)
[2016-07-03] MEDS ORDERED: METHADONE HCL 10 MG TABLET (FOR DETOX USE ONLY) PO SCH (10:00)
--- NOTE | 2016-07-03 12:41 | DS ---
[facility] Detox Discharge Summary Admission Date: 06/29/16 - History Present History: Alcohol Dependence, Cocaine Dependence, Opioid Dependence, Sedative Dependence Additional Comments: DETOX COMPLETED. ALERT O X 3. NAD. Pertinent Past History: DEPRESSION - Physical Exam Results Vital Signs: Vital Signs Temperature 95.7 F L 07/03/16 06:30 Pulse Rate 84 07/03/16 06:30 Respiratory Rate 18 07/03/16 06:30 Blood Pressure 126/70 07/03/16 06:30 O2 Sat by Pulse Oximetry (%) Pertinent Admission Physical Exam Findings: WITHDRAWAL SX - Treatment Hospital Course: Detox Protocol Followed, Detoxed Safely, Responded well, Discharged Condition Good, Rehab Referral Accepted Patient has Accepted a Rehab Referral to: [facility] - Medication Discharge Medications: Ambulatory Orders Gabapentin [Neurontin -] 800 mg PO TID #120 capsule 06/02/16 Trazodone HCl [Desyrel -] 50 mg PO HS #30 tablet 06/02/16 Gabapentin [Neurontin -] 800 mg PO TID #120 capsule 07/02/16 Trazodone HCl [Desyrel -] 50 mg PO HS #30 tablet 07/02/16 - Diagnosis (1) Alcohol dependence with uncomplicated withdrawal Status: Acute (2) Cocaine dependence Status: Acute Qualifiers: Substance use status: uncomplicated Qualified Code(s): F14.20 - Cocaine dependence, uncomplicated (3) Nicotine dependence Status: Acute Qualifiers: Nicotine product type: cigarettes Substance use status: in withdrawal Qualified Code(s): F17.213 - Nicotine dependence, cigarettes, with withdrawal (4) Opioid dependence with withdrawal Status: Acute (5) Substance induced mood disorder Status: Acute (6) Uncomplicated sedative, hypnotic or anxiolytic withdrawal Status: Acute (7) Generalized anxiety disorder Status: Chronic (8) Insomnia Status: Chronic - AMA Did Patient Leave Against Medical Advice: No
[2016-07-04] MEDS ORDERED: METHADONE HCL 5 MG TABLET (FOR DETOX USE ONLY) PO SCH (06:00)
== END 2016-07-03 09:32 | disposition home or self-care (01) | DRG 773 ==
LOC: YASAS 15:41 → Y3N 16:53
PROVIDERS: ADMIT Internal Medicine; ATTEND Internal Medicine
PROC: HZ2ZZZZ Detoxification Services for Substance Abuse Treatment (ICD-10-PCS; principal; 2016-07-03)
DX: F11.23 Opioid dependence with withdrawal (principal); F13.230 Sedative, hypnotic or anxiolytic dependence with withdrawal, uncomplicated; F10.230 Alcohol dependence with withdrawal, uncomplicated; F14.20 Cocaine dependence, uncomplicated; F17.210 Nicotine dependence, cigarettes, uncomplicated; F19.24 Other psychoactive substance dependence with psychoactive substance-induced mood disorder; F41.1 Generalized anxiety disorder; G47.00 Insomnia, unspecified
CPT/HCPCS: 36415; 80053; 81003; 85027; 86593; 87389; 93005; 93010

== ENCOUNTER 2022-03-05 17:36 | Inpatient (IN) | payer OTHER ==
[2022-03-05 18:52] VITALS: BMI 22.4
[2022-03-05] MEDS ORDERED: ACETAMINOPHEN 325 MG TABLET (FP) PO PRN (19:23)
[2022-03-05] MEDS ORDERED: NALOXONE HCL (KLOXXADO) 8 MG SPRAY NS PRN (19:23)
[2022-03-05] MEDS ORDERED: MAGNESIUM HYDROX 2400MG/30ML ORAL SUSPENSION 30 ML CUP PO PRN (19:23)
[2022-03-05] MEDS ORDERED: MAGNESIUM CITRATE 300 ML BOTTLE PO PRN (19:23)
[2022-03-05] MEDS ORDERED: BENZOCAINE/MENTHOL (CHLORASEPTIC ) LOZENGE MM PRN (19:23)
[2022-03-05] MEDS ORDERED: MAG HYDROX/AL HYDROX/SIMETH 30 ML UNIT-DOSE CUP PO PRN (19:23)
[2022-03-05] MEDS ORDERED: LOPERAMIDE HCL 2 MG CAPSULE PO PRN (19:23)
[2022-03-05] MEDS ORDERED: methaDONE HCL 10 MG TABLET (FOR DETOX USE ONLY) PO ONE ×2 (19:23→22:00)
[2022-03-05] MEDS ORDERED: MELATONIN 5 MG TABLETS PO SCH (22:00)
[2022-03-05] MEDS: diazePAM 5 MG TABLET PO PRN (22:34)
[2022-03-05] MEDS: THIAMINE HCL 100 MG TABLET (FP) PO SCH (22:34)
[2022-03-05] MEDS: BISMUTH SUBSALICYLATE 524 MG/30 ML PO PRN (23:28)
[2022-03-05] MEDS: NICOTINE 10 MG CARTRIDGE (INHALER) IH PRN (23:29)
[2022-03-06] MEDS: NICOTINE 10 MG CARTRIDGE (INHALER) IH PRN (08:58)
[2022-03-06] MEDS: NICOTINE 7 MG/24 HOURS TOPICAL PATCH TD SCH (10:24)
[2022-03-06] MEDS: PRENATAL VITAMINS W/ FOLIC ACID TABLET (FP) PO SCH (10:25)
[2022-03-06] MEDS: diazePAM 5 MG TABLET PO PRN ×3 (10:26→22:30)
[2022-03-06] MEDS: BISMUTH SUBSALICYLATE 524 MG/30 ML PO PRN (10:33)
[2022-03-06 14:20] LABS: HEMATOCRIT 31.5 % (35.4-49); HEMOGLOBIN 10.9 GM/dL (11.7-16.9); MCH 29.4 pg (25.7-33.7); MCHC 34.7 g/dl (32.0-35.9); MEAN CELL VOLUME 84.9 fl (80-96); MEAN PLT VOLUME 7.6 fl (7.5-11.1); PLATELET COUNT 275 10^3/uL (134-434); RBC 3.71 M/mm3 (4.00-5.60); RDW 15.4 % (11.9-15.9); WHITE BLOOD COUNT 6.5 K/mm3 (4.0-10.0)
[2022-03-06] MEDS: NICOTINE POLACRILEX 2 MG GUM BUC PRN ×3 (14:32→22:34)
[2022-03-06 15:32] LABS: ALBUMIN 2.8 g/dl (3.4-5.0); BLOOD UREA NITROGEN 12.5 mg/dL (7-18); CALCIUM 8.7 mg/dL (8.5-10.1)
[2022-03-06 15:36] LABS: BILIRUBIN,TOTAL 0.4 mg/dL (0.2-1); CREATININE 0.6 mg/dL (0.55-1.3); TOT PROT 6.3 g/dl (6.4-8.2)
[2022-03-06 16:15] LABS: HIV INTERPRETATION NEGATIVE (NEGATIVE)
[2022-03-06] MEDS: METHOCARBAMOL 500 MG TABLET PO PRN (17:39)
[2022-03-06] MEDS: ACETAMINOPHEN 325 MG TABLET (FP) PO PRN (17:40)
[2022-03-06] MEDS: THIAMINE HCL 100 MG TABLET (FP) PO SCH (22:31)
[2022-03-06] MEDS: MIRTAZAPINE 15 MG TABLET (FP) PO SCH (22:31)
[2022-03-06] MEDS: SUVOREXANT 10 MG TABLET PO PRN (22:33)
[2022-03-07] MEDS: DICYCLOMINE HCL 10 MG CAPSULE PO PRN ×2 (06:07→20:47)
[2022-03-07] MEDS: diazePAM 5 MG TABLET PO PRN ×5 (06:07→22:19)
[2022-03-07] MEDS: METHOCARBAMOL 500 MG TABLET PO PRN ×2 (07:51→18:30)
[2022-03-07] MEDS: IBUPROFEN 600 MG TABLET (FP) PO PRN (07:52)
[2022-03-07] MEDS ORDERED: methaDONE HCL 10 MG TABLET (FOR DETOX USE ONLY) PO ONE (10:00)
[2022-03-07] MEDS: PRENATAL VITAMINS W/ FOLIC ACID TABLET (FP) PO SCH (10:10)
[2022-03-07] MEDS: NICOTINE 7 MG/24 HOURS TOPICAL PATCH TD SCH (10:10)
[2022-03-07] MEDS: BETAMETHASONE DIP 0.05% TP LOTION 30 ML BOTTLE TP SCH ×2 (12:16→22:14)
[2022-03-07] MEDS: GABAPENTIN 300 MG CAPSULE PO SCH ×2 (14:06→22:15)
[2022-03-07] MEDS: IBUPROFEN 400 MG TABLET (FP) PO PRN (14:30)
[2022-03-07] MEDS: ACETAMINOPHEN 325 MG TABLET (FP) PO PRN (17:38)
[2022-03-07] MEDS: NICOTINE POLACRILEX 2 MG GUM BUC PRN (17:39)
[2022-03-07] MEDS: NICOTINE 10 MG CARTRIDGE (INHALER) IH PRN (20:47)
[2022-03-07] MEDS: THIAMINE HCL 100 MG TABLET (FP) PO SCH (22:15)
[2022-03-07] MEDS: MIRTAZAPINE 15 MG TABLET (FP) PO SCH (22:15)
[2022-03-07] MEDS: SUVOREXANT 10 MG TABLET PO PRN (22:16)
[2022-03-08] MEDS: GABAPENTIN 300 MG CAPSULE PO SCH ×3 (05:23→22:22)
[2022-03-08] MEDS: diazePAM 5 MG TABLET PO PRN ×3 (06:46→18:45)
[2022-03-08] MEDS: NICOTINE POLACRILEX 2 MG GUM BUC PRN ×3 (08:41→21:05)
[2022-03-08] MEDS: PRENATAL VITAMINS W/ FOLIC ACID TABLET (FP) PO SCH (09:56)
[2022-03-08] MEDS: BETAMETHASONE DIP 0.05% TP LOTION 30 ML BOTTLE TP SCH ×2 (09:56→22:23)
[2022-03-08] MEDS: NICOTINE 7 MG/24 HOURS TOPICAL PATCH TD SCH (09:56)
[2022-03-08] MEDS: METHOCARBAMOL 500 MG TABLET PO PRN ×2 (09:58→22:24)
[2022-03-08] MEDS: ACETAMINOPHEN 325 MG TABLET (FP) PO PRN ×2 (14:39→22:25)
[2022-03-08] MEDS: NICOTINE 10 MG CARTRIDGE (INHALER) IH PRN (21:05)
[2022-03-08] MEDS: THIAMINE HCL 100 MG TABLET (FP) PO SCH (22:22)
[2022-03-08] MEDS: MIRTAZAPINE 15 MG TABLET (FP) PO SCH (22:22)
[2022-03-08] MEDS: SUVOREXANT 10 MG TABLET PO PRN (22:22)
[2022-03-09] MEDS: GABAPENTIN 300 MG CAPSULE PO SCH ×3 (05:21→22:50)
[2022-03-09] MEDS: NICOTINE POLACRILEX 2 MG GUM BUC PRN ×2 (05:24→21:31)
[2022-03-09] MEDS: ACETAMINOPHEN 325 MG TABLET (FP) PO PRN (05:49)
[2022-03-09] MEDS: METHOCARBAMOL 500 MG TABLET PO PRN (05:49)
[2022-03-09] MEDS ORDERED: methaDONE HCL 10 MG TABLET (FOR DETOX USE ONLY) PO ONE (10:00)
[2022-03-09] MEDS: BETAMETHASONE DIP 0.05% TP LOTION 30 ML BOTTLE TP SCH ×2 (10:20→22:51)
[2022-03-09] MEDS: NICOTINE 7 MG/24 HOURS TOPICAL PATCH TD SCH (10:21)
[2022-03-09] MEDS: PRENATAL VITAMINS W/ FOLIC ACID TABLET (FP) PO SCH (10:21)
[2022-03-09] MEDS: IBUPROFEN 600 MG TABLET (FP) PO PRN ×2 (10:24→18:51)
[2022-03-09] MEDS: diazePAM 5 MG TABLET PO PRN ×4 (10:25→22:55)
[2022-03-09] MEDS ORDERED: LIDOCAINE 5% TOPICAL PATCH TP ONE (12:39)
[2022-03-09] MEDS ORDERED: SUVOREXANT 10 MG TABLET PO PRN (22:00)
[2022-03-09] MEDS ORDERED: LIDOCAINE PATCH REMOVAL MC SCH (22:00)
[2022-03-09] MEDS: THIAMINE HCL 100 MG TABLET (FP) PO SCH (22:50)
[2022-03-09] MEDS: MIRTAZAPINE 15 MG TABLET (FP) PO SCH (22:51)
[2022-03-10] MEDS: IBUPROFEN 600 MG TABLET (FP) PO PRN (06:42)
[2022-03-10] MEDS: diazePAM 5 MG TABLET PO PRN (06:43)
[2022-03-10] MEDS: GABAPENTIN 300 MG CAPSULE PO SCH ×2 (06:44→14:00)
[2022-03-10] MEDS: NICOTINE POLACRILEX 2 MG GUM BUC PRN (08:49)
[2022-03-10] MEDS: IBUPROFEN 400 MG TABLET (FP) PO PRN (10:26)
[2022-03-10] MEDS: METHOCARBAMOL 500 MG TABLET PO PRN (10:26)
[2022-03-10] MEDS: PRENATAL VITAMINS W/ FOLIC ACID TABLET (FP) PO SCH (10:27)
[2022-03-10] MEDS: NICOTINE 7 MG/24 HOURS TOPICAL PATCH TD SCH (10:28)
[2022-03-10] MEDS: BETAMETHASONE DIP 0.05% TP LOTION 30 ML BOTTLE TP SCH (10:29)
[2022-03-10 12:44] VITALS: RESP 16; TEMP 98.4
[2022-03-10 12:46] VITALS: BP 123/61; PULSE 85
== END 2022-03-10 14:33 | disposition other institution (70) | DRG 773 ==
LOC: YASAS 17:36 → Y3N 20:20
PROVIDERS: ADMIT Allergy & Immunology; ATTEND Surgery
PROC: HZ2ZZZZ Detoxification Services for Substance Abuse Treatment (ICD-10-PCS; principal; 2022-03-05)
DX: F11.23 Opioid dependence with withdrawal (principal); F13.20 Sedative, hypnotic or anxiolytic dependence, uncomplicated; F12.20 Cannabis dependence, uncomplicated; F17.210 Nicotine dependence, cigarettes, uncomplicated; F17.290 Nicotine dependence, other tobacco product, uncomplicated; F19.282 Other psychoactive substance dependence with psychoactive substance-induced sleep disorder; F41.1 Generalized anxiety disorder; F43.10 Post-traumatic stress disorder, unspecified; F32.A Depression, unspecified; R26.89 Other abnormalities of gait and mobility; Z28.310 Unvaccinated for COVID-19; Z28.9 Immunization not carried out for unspecified reason
CPT/HCPCS: 36415; 80053; 85027; 86780; 87389; 87811; 93005; 93010; C9803-CS; U0003; U0005

== ENCOUNTER 2022-04-10 18:17 | Inpatient (IN) | payer OTHER ==
[2022-04-10 18:36] VITALS: BMI 23.0
[2022-04-10] MEDS ORDERED: MAG HYDROX/AL HYDROX/SIMETH 30 ML UNIT-DOSE CUP PO PRN (19:07)
[2022-04-10] MEDS ORDERED: BENZOCAINE/MENTHOL (CHLORASEPTIC ) LOZENGE MM PRN (19:07)
[2022-04-10] MEDS ORDERED: POLYETHYLENE GLYCOL (HEALTHYLAX) 3350 17 GM PACKET PO PRN (19:07)
[2022-04-10] MEDS ORDERED: BISMUTH SUBSALICYLATE 524 MG/30 ML PO PRN (19:07)
[2022-04-10] MEDS ORDERED: LOPERAMIDE HCL 2 MG CAPSULE PO PRN (19:07)
[2022-04-10] MEDS ORDERED: IBUPROFEN 400 MG TABLET (FP) PO PRN (19:07)
[2022-04-10] MEDS ORDERED: IBUPROFEN 600 MG TABLET (FP) PO PRN (19:07)
[2022-04-10] MEDS ORDERED: NALOXONE HCL (KLOXXADO) 8 MG SPRAY NS PRN (19:07)
[2022-04-10] MEDS ORDERED: ACETAMINOPHEN 325 MG TABLET (FP) PO PRN ×2 (19:07)
[2022-04-10] MEDS ORDERED: MAGNESIUM HYDROX 2400MG/30ML ORAL SUSPENSION 30 ML CUP PO PRN (19:07)
[2022-04-10] MEDS ORDERED: DICYCLOMINE HCL 10 MG CAPSULE PO PRN (19:07)
[2022-04-10] MEDS ORDERED: QUEtiapine FUMARATE 50 MG TABLET PO ONE (22:00)
[2022-04-10] MEDS: diazePAM 5 MG TABLET PO PRN (22:24)
[2022-04-10] MEDS: THIAMINE HCL 100 MG TABLET (FP) PO SCH (22:24)
[2022-04-10] MEDS: MELATONIN 5 MG TABLETS PO SCH (22:25)
[2022-04-10] MEDS: NICOTINE 10 MG CARTRIDGE (INHALER) IH PRN (22:26)
[2022-04-11] MEDS: METHOCARBAMOL 500 MG TABLET PO PRN (07:05)
[2022-04-11] MEDS: diazePAM 5 MG TABLET PO PRN ×4 (07:05→22:11)
[2022-04-11] MEDS: NICOTINE 10 MG CARTRIDGE (INHALER) IH PRN ×3 (10:16→17:24)
[2022-04-11] MEDS: PRENATAL VITAMINS W/ FOLIC ACID TABLET (FP) PO SCH (10:17)
[2022-04-11] MEDS: NICOTINE 7 MG/24 HOURS TOPICAL PATCH TD SCH (10:18)
[2022-04-11] MEDS: NICOTINE POLACRILEX 2 MG GUM BUC PRN (10:20)
[2022-04-11 11:11] LABS: HEMATOCRIT 35.2 % (35.4-49); HEMOGLOBIN 11.9 GM/dL (11.7-16.9); MCH 29.2 pg (25.7-33.7); MCHC 33.8 g/dl (32.0-35.9); MEAN CELL VOLUME 86.5 fl (80-96); MEAN PLT VOLUME 7.3 fl (7.5-11.1); PLATELET COUNT 266 10^3/uL (134-434); RBC 4.07 M/mm3 (4.00-5.60); RDW 15.5 % (11.9-15.9)
[2022-04-11 11:19] LABS: CALCIUM 9.2 mg/dL (8.5-10.1)
[2022-04-11 11:20] LABS: ALBUMIN 3.6 g/dl (3.4-5.0); BLOOD UREA NITROGEN 11.1 mg/dL (7-18)
[2022-04-11 11:23] LABS: CREATININE 0.7 mg/dL (0.55-1.3)
[2022-04-11 11:24] LABS: TOT PROT 6.9 g/dl (6.4-8.2)
[2022-04-11 11:25] LABS: BILIRUBIN,TOTAL 0.6 mg/dL (0.2-1)
[2022-04-11] MEDS: GABAPENTIN 300 MG CAPSULE PO SCH ×2 (14:15→22:11)
[2022-04-11] MEDS: MIRTAZAPINE 15 MG TABLET (FP) PO SCH (22:10)
[2022-04-11] MEDS: THIAMINE HCL 100 MG TABLET (FP) PO SCH (22:11)
[2022-04-11] MEDS ORDERED: QUEtiapine FUMARATE 25 MG TABLET PO ONE (22:36)
[2022-04-11] MEDS: MELATONIN 5 MG TABLETS PO SCH (23:09)
[2022-04-12] MEDS: diazePAM 5 MG TABLET PO PRN ×4 (05:47→21:30)
[2022-04-12] MEDS: GABAPENTIN 300 MG CAPSULE PO SCH ×3 (05:47→22:58)
[2022-04-12] MEDS ORDERED: methaDONE HCL 10 MG TABLET (FOR DETOX USE ONLY) PO ONE (10:00)
[2022-04-12] MEDS: NICOTINE 7 MG/24 HOURS TOPICAL PATCH TD SCH (10:08)
[2022-04-12] MEDS: PRENATAL VITAMINS W/ FOLIC ACID TABLET (FP) PO SCH (10:09)
[2022-04-12] MEDS: METHOCARBAMOL 500 MG TABLET PO PRN (10:09)
[2022-04-12] MEDS: NICOTINE 10 MG CARTRIDGE (INHALER) IH PRN ×2 (10:12→13:29)
[2022-04-12] MEDS: NICOTINE POLACRILEX 2 MG GUM BUC PRN (10:45)
[2022-04-12] MEDS ORDERED: QUEtiapine FUMARATE 25 MG TABLET PO ONE (22:00)
[2022-04-12] MEDS: THIAMINE HCL 100 MG TABLET (FP) PO SCH (22:58)
[2022-04-12] MEDS: MELATONIN 5 MG TABLETS PO SCH (22:58)
[2022-04-12] MEDS: MIRTAZAPINE 15 MG TABLET (FP) PO SCH (22:58)
[2022-04-13] MEDS: GABAPENTIN 300 MG CAPSULE PO SCH ×3 (06:08→22:10)
[2022-04-13] MEDS: diazePAM 5 MG TABLET PO PRN ×2 (06:13→12:52)
[2022-04-13] MEDS: NICOTINE 7 MG/24 HOURS TOPICAL PATCH TD SCH (10:09)
[2022-04-13] MEDS: PRENATAL VITAMINS W/ FOLIC ACID TABLET (FP) PO SCH (10:09)
[2022-04-13] MEDS: METHOCARBAMOL 500 MG TABLET PO PRN (10:09)
[2022-04-13] MEDS: NICOTINE 10 MG CARTRIDGE (INHALER) IH PRN (10:20)
[2022-04-13] MEDS: NICOTINE POLACRILEX 2 MG GUM BUC PRN (12:52)
[2022-04-13] MEDS: MIRTAZAPINE 15 MG TABLET (FP) PO SCH (22:10)
[2022-04-13] MEDS: THIAMINE HCL 100 MG TABLET (FP) PO SCH (22:10)
[2022-04-13] MEDS: QUEtiapine FUMARATE 50 MG TABLET PO PRN (22:10)
[2022-04-14] MEDS: GABAPENTIN 300 MG CAPSULE PO SCH ×3 (06:18→22:13)
[2022-04-14] MEDS ORDERED: methaDONE HCL 10 MG TABLET (FOR DETOX USE ONLY) PO ONE (10:00)
[2022-04-14] MEDS: NICOTINE 10 MG CARTRIDGE (INHALER) IH PRN ×2 (10:07→19:37)
[2022-04-14] MEDS: PRENATAL VITAMINS W/ FOLIC ACID TABLET (FP) PO SCH (10:07)
[2022-04-14] MEDS: NICOTINE 7 MG/24 HOURS TOPICAL PATCH TD SCH (10:07)
[2022-04-14] MEDS: METHOCARBAMOL 500 MG TABLET PO PRN (10:08)
[2022-04-14] MEDS ORDERED: hydrOXYzine PAMOATE 25 MG CAPSULE (FP) PO PRN (10:36)
[2022-04-14] MEDS ORDERED: diazePAM 5 MG TABLET PO PRN (10:41)
[2022-04-14] MEDS: diazePAM 5 MG TABLET PO PRN ×3 (13:30→23:50)
[2022-04-14] MEDS: NICOTINE POLACRILEX 2 MG GUM BUC PRN ×2 (13:31→19:37)
[2022-04-14 20:47] VITALS: RESP 16
[2022-04-14] MEDS: MIRTAZAPINE 15 MG TABLET (FP) PO SCH (22:13)
[2022-04-14] MEDS: QUEtiapine FUMARATE 50 MG TABLET PO PRN (22:13)
[2022-04-14] MEDS: THIAMINE HCL 100 MG TABLET (FP) PO SCH (22:13)
[2022-04-15] MEDS: GABAPENTIN 300 MG CAPSULE PO SCH ×2 (06:01→13:50)
[2022-04-15 08:55] VITALS: BP 144/73; PULSE 80; TEMP 96.9
[2022-04-15] MEDS: NICOTINE 7 MG/24 HOURS TOPICAL PATCH TD SCH (10:03)
[2022-04-15] MEDS: PRENATAL VITAMINS W/ FOLIC ACID TABLET (FP) PO SCH (10:04)
[2022-04-15] MEDS: METHOCARBAMOL 500 MG TABLET PO PRN (10:05)
[2022-04-15] MEDS: NICOTINE 10 MG CARTRIDGE (INHALER) IH PRN (10:05)
[2022-04-15] MEDS: NICOTINE POLACRILEX 2 MG GUM BUC PRN (10:06)
== END 2022-04-15 14:03 | disposition home or self-care (01) | DRG 773 ==
LOC: YASAS 18:17 → Y6N 19:18
PROVIDERS: ADMIT Allergy & Immunology; ATTEND Surgery
PROC: HZ2ZZZZ Detoxification Services for Substance Abuse Treatment (ICD-10-PCS; principal; 2022-04-10)
DX: F11.23 Opioid dependence with withdrawal (principal); F10.230 Alcohol dependence with withdrawal, uncomplicated; F13.20 Sedative, hypnotic or anxiolytic dependence, uncomplicated; F14.20 Cocaine dependence, uncomplicated; F12.20 Cannabis dependence, uncomplicated; F17.210 Nicotine dependence, cigarettes, uncomplicated; F19.280 Other psychoactive substance dependence with psychoactive substance-induced anxiety disorder; F19.282 Other psychoactive substance dependence with psychoactive substance-induced sleep disorder; F19.24 Other psychoactive substance dependence with psychoactive substance-induced mood disorder; F41.8 Other specified anxiety disorders; F32.9 Major depressive disorder, single episode, unspecified; F43.10 Post-traumatic stress disorder, unspecified; M54.50 Low back pain, unspecified; G89.29 Other chronic pain; Z28.310 Unvaccinated for COVID-19; Z28.9 Immunization not carried out for unspecified reason
CPT/HCPCS: 36415; 80053; 85027; 86780; C9803-CS; U0003; U0005